=== PATIENT | female | born 1960 | race African-American/Black ===

== ENCOUNTER 2023-07-04 01:38 | Inpatient (IN) | payer MEDICARE, OTHER ==
[2023-07-04 04:29] VITALS: BMI 31.3
[2023-07-04] MEDS ORDERED: Acetaminophen 650 MG Suppository PR PRN (04:48)
[2023-07-04] MEDS: Albumin 25% 25 GM (100 mL) BOT IVPB SCH ×2 (05:26→15:08)
[2023-07-04] MEDS ORDERED: Glucagon 1 MG/ML KIT IM PRN (05:59)
[2023-07-04] MEDS ORDERED: Dextrose 5% in Water 1,000 ML IV PRN (05:59)
[2023-07-04] MEDS ORDERED: Dextrose 50% Abboject 50 ML SYRINGE SLOW IVP PRN (05:59)
[2023-07-04 06:35] LABS: #Basophils 0.1 10x3/uL (0.0-0.2); #Eosinphils 0.2 10x3/uL (0.0-0.5); #Monocytes 0.9 10x3/uL (0.0-1.1); #Neutrophils 4.9 10x3/uL (1.5-8.4); %Basophils 0.6 % (0.0-2.0); %Eosinophils 2.5 % (0.0-6.0); %Lymphocytes 29.7 % (18.0-47.0); %Monocytes 10.2 % (0.0-10.0); %Neutrophils 56.8 % (40.0-75.0); Hematocrit 23.4 % (34.9-44.5); Hemoglobin 7.9 g/dL (12.0-15.5); Mean Corpuscular HGB CONC 33.8 g/dL (32.0-36.0); Platelet Count 73 10x3/uL (150-450); RBC Distribution Width 18.6 % (11.5-14.5); Red Blood Cell (RBC) Count 3.04 10x6/uL (3.90-5.03); White Blood Cell (WBC) Count 8.7 10x3/uL (3.5-10.5)
[2023-07-04 06:50] LABS: Anion Gap 17 mmol/L (10-20); BUN (Urea Nitrogen) 61 mg/dL (9.8-20.1); Calc. Creatinine Clearance 18 mL/min (70-130); Calcium 8.6 mg/dL (7.8-10.44); Carbon Dioxide 16 mmol/L (23-31); Chloride 110 mmol/L (98-107); Estimated GFR 11; Glucose 124 mg/dL (80-115); Magnesium 1.9 mg/dL (1.6-2.6); Potassium 4.8 mmol/L (3.5-5.1); Sodium 138 mmol/L (136-145)
[2023-07-04 07:02] LABS: Crenated RBC SLIGHT = 1-5 cells (100X) (None Seen); Platelet Adequacy Comment Appears Decreased; Schistocytes SLIGHT = 2-5 cells (100X) (0-1/hpf); Target Cells MODERATE= 6-15 cells (100X) (0-1/hpf)
[2023-07-04] MEDS: Pantoprazole 40 MG VIAL IVP SCH (10:14)
[2023-07-04] MEDS: Sodium Bicarbonate Tab 325 MG TAB PO SCH (10:17)
[2023-07-04] MEDS: Rifaximin 550 MG TAB PO SCH (10:18)
[2023-07-04] MEDS: Heparin 5,000 UNITS/ML VIAL SC SCH (10:18)
[2023-07-04] MEDS: Lactulose 20 GM (30 mL) UDCUP PO SCH (10:19)
[2023-07-04] MEDS: HumaLOG 300 UNITS/3 ML VIAL SC PRN (23:31)
[2023-07-05 03:49] LABS: #Basophils 0.1 10x3/uL (0.0-0.2); #Eosinphils 0.2 10x3/uL (0.0-0.5); #Monocytes 0.8 10x3/uL (0.0-1.1); #Neutrophils 3.9 10x3/uL (1.5-8.4); %Basophils 0.7 % (0.0-2.0); %Eosinophils 2.5 % (0.0-6.0); %Lymphocytes 37.4 % (18.0-47.0); %Monocytes 10.5 % (0.0-10.0); %Neutrophils 48.7 % (40.0-75.0); Hematocrit 18.8 % (34.9-44.5); Hemoglobin 6.5 g/dL (12.0-15.5); Mean Corpuscular HGB CONC 34.6 g/dL (32.0-36.0); Mean Corpuscular Hemoglobin 26.5 pg (27.0-33.0); Mean Corpuscular Volume 76.7 fl (81.6-98.3); Platelet Count 70 10x3/uL (150-450); RBC Distribution Width 18.1 % (11.5-14.5); Red Blood Cell (RBC) Count 2.45 10x6/uL (3.90-5.03)
[2023-07-05 03:58] LABS: Anion Gap 17 mmol/L (10-20); BUN (Urea Nitrogen) 57 mg/dL (9.8-20.1); Calc. Creatinine Clearance 20 mL/min (70-130); Calcium 8.8 mg/dL (7.8-10.44); Carbon Dioxide 17 mmol/L (23-31); Chloride 112 mmol/L (98-107); Estimated GFR 13; Glucose 120 mg/dL (80-115); Iron Binding Capacity, Total 98 mcg/dL (265-497); Potassium 4.7 mmol/L (3.5-5.1); Sodium 141 mmol/L (136-145)
[2023-07-05 04:26] LABS: Iron 102 ug/dL (50-170)
[2023-07-05 05:12] LABS: Anisocytosis SLIGHT = 6-15 cells (100X) (0-5/hpf); Elliptocytes SLIGHT = 2-5 cells (100X) (0-1/hpf); Target Cells SLIGHT = 2-5 cells (100X) (0-1/hpf)
[2023-07-05 05:13] LABS: Platelet Adequacy Comment Appears Decreased
[2023-07-05] MEDS: Thiamine 100 MG TAB PO SCH (09:55)
[2023-07-05] MEDS: Lactulose 20 GM (30 mL) UDCUP PO SCH (17:04)
[2023-07-05] MEDS: Albumin 25% 25 GM (100 mL) BOT IVPB SCH (17:04)
[2023-07-05 19:01] LABS: Bilirubin Neg (Negative); Blood, Urine 150 (Negative); Clarity Cloudy (Clear); Glucose, Urine (Dipstick) Normal (Negative); Ketone, Urine 5 mg/dL (Negative); Leukocyte 500 (Negative); Nitrite Positive (Negative); Protein, Urine (Dipstick) 30 mg/dl (Neg-Trace); Urobilinogen Normal mg/dL (Less than 2)
[2023-07-05 19:15] LABS: Bacteria/HPF 4+ HPF (None Seen); Squamous Epithelial 0-3 HPF (0-3); Yeast-Budding 1+ HPF (None Seen)
[2023-07-06 04:20] LABS: #Basophils 0.1 10x3/uL (0.0-0.2); #Eosinphils 0.2 10x3/uL (0.0-0.5); #Monocytes 0.6 10x3/uL (0.0-1.1); #Neutrophils 4.5 10x3/uL (1.5-8.4); %Basophils 0.7 % (0.0-2.0); %Eosinophils 2.6 % (0.0-6.0); %Lymphocytes 30.4 % (18.0-47.0); %Monocytes 8.1 % (0.0-10.0); %Neutrophils 57.9 % (40.0-75.0); Hematocrit 25.3 % (34.9-44.5); Hemoglobin 8.7 g/dL (12.0-15.5); Mean Corpuscular HGB CONC 34.4 g/dL (32.0-36.0); Mean Corpuscular Volume 78.6 fl (81.6-98.3); Platelet Count 61 10x3/uL (150-450); RBC Distribution Width 17.8 % (11.5-14.5); Red Blood Cell (RBC) Count 3.22 10x6/uL (3.90-5.03); White Blood Cell (WBC) Count 7.7 10x3/uL (3.5-10.5)
[2023-07-06 04:44] LABS: ALT (SGPT) 11 U/L (8-55); AST (SGOT) 23 U/L (5-34); Albumin 3.9 g/dL (3.4-4.8); Alkaline Phosphatase 153 U/L (40-110); Bilirubin, Direct 1.7 mg/dL (0.1-0.3); Bilirubin, Total 3.8 mg/dL (0.2-1.2)
[2023-07-06 04:46] LABS: Anion Gap 15 mmol/L (10-20); BUN (Urea Nitrogen) 47 mg/dL (9.8-20.1); Calc. Creatinine Clearance 27 mL/min (70-130); Calcium 9.1 mg/dL (7.8-10.44); Carbon Dioxide 17 mmol/L (23-31); Chloride 111 mmol/L (98-107); Estimated GFR 18; Glucose 269 mg/dL (80-115); Potassium 4.8 mmol/L (3.5-5.1); Sodium 138 mmol/L (136-145)
[2023-07-06] MEDS: HumaLOG 300 UNITS/3 ML VIAL SC PRN (06:32)
[2023-07-06] MEDS ORDERED: Lactated Ringer's 1,000 ML IV SCH (07:15)
[2023-07-06] MEDS: Lantus 1000 UNITS/10 ML VIAL SC SCH (09:16)
[2023-07-06] MEDS: EPOETIN ALFA-EPBX 10,000 UNITS/ML VIAL SC SCH (10:41)
[2023-07-06] MEDS: Albumin 25% 25 GM (100 mL) BOT IVPB SCH (11:10)
[2023-07-06] MEDS: Propranolol 10 MG TAB PO SCH ×2 (12:31→14:17)
[2023-07-06] MEDS: Terbinafine 1% Cream 15 GM Tube TOP SCH (14:15)
[2023-07-07] MEDS: Albuterol 2.5 MG (3 mL) NEB NEB SCH (03:20)
[2023-07-07 05:34] LABS: #Eosinphils 0.1 10x3/uL (0.0-0.5); #Monocytes 1.1 10x3/uL (0.0-1.1); %Basophils 0.3 % (0.0-2.0); %Lymphocytes 21.8 % (18.0-47.0); %Monocytes 9.6 % (0.0-10.0); %Neutrophils 66.8 % (40.0-75.0); Hematocrit 26.1 % (34.9-44.5); Hemoglobin 8.7 g/dL (12.0-15.5); Mean Corpuscular HGB CONC 33.3 g/dL (32.0-36.0); Mean Corpuscular Hemoglobin 26.7 pg (27.0-33.0); Mean Corpuscular Volume 80.1 fl (81.6-98.3); Platelet Count 56 10x3/uL (150-450); Red Blood Cell (RBC) Count 3.26 10x6/uL (3.90-5.03); White Blood Cell (WBC) Count 11.9 10x3/uL (3.5-10.5)
[2023-07-07 05:58] LABS: ALT (SGPT) 11 U/L (8-55); AST (SGOT) 24 U/L (5-34); Albumin 4.9 g/dL (3.4-4.8); Alkaline Phosphatase 126 U/L (40-110); Anion Gap 16 mmol/L (10-20); BUN (Urea Nitrogen) 47 mg/dL (9.8-20.1); Bilirubin, Direct 2.1 mg/dL (0.1-0.3); Bilirubin, Total 6.8 mg/dL (0.2-1.2); Calc. Creatinine Clearance 25 mL/min (70-130); Calcium 10.1 mg/dL (7.8-10.44); Carbon Dioxide 18 mmol/L (23-31); Chloride 108 mmol/L (98-107); Estimated GFR 16; Glucose 259 mg/dL (80-115); Potassium 5.1 mmol/L (3.5-5.1); Protein, Total 8.3 g/dL (5.8-8.1); Sodium 137 mmol/L (136-145)
[2023-07-07] MEDS: Lantus 1000 UNITS/10 ML VIAL SC SCH (08:27)
[2023-07-07] MEDS: Terbinafine 1% Cream 15 GM Tube TOP SCH (08:30)
[2023-07-07] MEDS: Acetaminophen 325 MG TAB PO PRN (08:32)
[2023-07-07] MEDS: Lactulose 20 GM (30 mL) UDCUP PO SCH (11:38)
[2023-07-07] MEDS: Amlodipine 5 MG TAB PO SCH (11:39)
[2023-07-07] MEDS: Ipratropium/Albuterol 3 ML NEB NEB PRN (12:25)
[2023-07-07] MEDS: Diclofenac 1% 100 GM Topical GEL TP SCH (14:56)
[2023-07-07] MEDS: Diclofenac 1% 50 GM TOPICAL GEL TP SCH (17:05)
[2023-07-07] MEDS: Propranolol 10 MG TAB PO SCH (21:07)
[2023-07-08 06:26] LABS: ALT (SGPT) 10 U/L (8-55); AST (SGOT) 18 U/L (5-34); Albumin 4.4 g/dL (3.4-4.8); Alkaline Phosphatase 111 U/L (40-110); Anion Gap 15 mmol/L (10-20); BUN (Urea Nitrogen) 60 mg/dL (9.8-20.1); Bilirubin, Direct 1.8 mg/dL (0.1-0.3); Bilirubin, Total 4.3 mg/dL (0.2-1.2); Calc. Creatinine Clearance 19 mL/min (70-130); Calcium 9.7 mg/dL (7.8-10.44); Carbon Dioxide 17 mmol/L (23-31); Chloride 108 mmol/L (98-107); Estimated GFR 11; Glucose 303 mg/dL (80-115); Potassium 5.1 mmol/L (3.5-5.1); Protein, Total 7.7 g/dL (5.8-8.1); Sodium 135 mmol/L (136-145)
[2023-07-08 06:45] LABS: #Basophils 0.1 10x3/uL (0.0-0.2); #Eosinphils 0.1 10x3/uL (0.0-0.5); #Monocytes 1.5 10x3/uL (0.0-1.1); %Basophils 0.3 % (0.0-2.0); %Eosinophils 0.7 % (0.0-6.0); %Lymphocytes 15.2 % (18.0-47.0); %Neutrophils 74.4 % (40.0-75.0); Hematocrit 25.4 % (34.9-44.5); Hemoglobin 8.5 g/dL (12.0-15.5); Mean Corpuscular HGB CONC 33.5 g/dL (32.0-36.0); Mean Corpuscular Hemoglobin 26.9 pg (27.0-33.0); Mean Corpuscular Volume 80.4 fl (81.6-98.3); Platelet Count 51 10x3/uL (150-450); Red Blood Cell (RBC) Count 3.16 10x6/uL (3.90-5.03); White Blood Cell (WBC) Count 16.1 10x3/uL (3.5-10.5)
[2023-07-08] MEDS: Amlodipine 5 MG TAB PO SCH (09:19)
[2023-07-08] MEDS: Sodium Chloride 0.9% 1,000 ML IV SCH (09:19)
[2023-07-08] MEDS: cefTRIAXone\\ROCEPHIN 1 GM in Sodium Chloride 0.9% 100 ML IVPB SCH (16:22)
[2023-07-09 08:49] LABS: ALT (SGPT) 10 U/L (8-55); AST (SGOT) 16 U/L (5-34); Alkaline Phosphatase 105 U/L (40-110); Anion Gap 15 mmol/L (10-20); BUN (Urea Nitrogen) 69 mg/dL (9.8-20.1); Bilirubin, Direct 1.6 mg/dL (0.1-0.3); Calc. Creatinine Clearance 15 mL/min (70-130); Carbon Dioxide 17 mmol/L (23-31); Chloride 109 mmol/L (98-107); Estimated GFR 9; Glucose 181 mg/dL (80-115); Potassium 5.4 mmol/L (3.5-5.1); Protein, Total 7.3 g/dL (5.8-8.1); Sodium 136 mmol/L (136-145)
[2023-07-09 08:53] LABS: #Eosinphils 0.2 10x3/uL (0.0-0.5); #Monocytes 0.9 10x3/uL (0.0-1.1); %Basophils 0.3 % (0.0-2.0); %Lymphocytes 23.6 % (18.0-47.0); %Monocytes 7.6 % (0.0-10.0); %Neutrophils 66.2 % (40.0-75.0); Hematocrit 24.6 % (34.9-44.5); Hemoglobin 8.1 g/dL (12.0-15.5); Mean Corpuscular HGB CONC 32.9 g/dL (32.0-36.0); Mean Corpuscular Hemoglobin 26.9 pg (27.0-33.0); Mean Corpuscular Volume 81.7 fl (81.6-98.3); Platelet Count 58 10x3/uL (150-450); RBC Distribution Width 18.6 % (11.5-14.5); Red Blood Cell (RBC) Count 3.01 10x6/uL (3.90-5.03)
[2023-07-09] MEDS: Lantus 1000 UNITS/10 ML VIAL SC SCH (10:57)
[2023-07-10 08:47] LABS: #Basophils 0.1 10x3/uL (0.0-0.2); #Eosinphils 0.2 10x3/uL (0.0-0.5); #Monocytes 0.9 10x3/uL (0.0-1.1); #Neutrophils 7.1 10x3/uL (1.5-8.4); %Basophils 0.5 % (0.0-2.0); %Eosinophils 2.3 % (0.0-6.0); %Lymphocytes 20.7 % (18.0-47.0); %Monocytes 8.2 % (0.0-10.0); %Neutrophils 67.7 % (40.0-75.0); Hematocrit 25.2 % (34.9-44.5); Hemoglobin 8.1 g/dL (12.0-15.5); Mean Corpuscular HGB CONC 32.1 g/dL (32.0-36.0); Mean Corpuscular Hemoglobin 26.6 pg (27.0-33.0); Mean Corpuscular Volume 82.9 fl (81.6-98.3); Platelet Count 62 10x3/uL (150-450); RBC Distribution Width 18.6 % (11.5-14.5); Red Blood Cell (RBC) Count 3.04 10x6/uL (3.90-5.03); White Blood Cell (WBC) Count 10.5 10x3/uL (3.5-10.5)
[2023-07-10 08:52] LABS: Anion Gap 15 mmol/L (10-20); BUN (Urea Nitrogen) 72 mg/dL (9.8-20.1); Calc. Creatinine Clearance 14 mL/min (70-130); Calcium 8.5 mg/dL (7.8-10.44); Carbon Dioxide 15 mmol/L (23-31); Chloride 112 mmol/L (98-107); Estimated GFR 8; Glucose 202 mg/dL (80-115); Potassium 5.2 mmol/L (3.5-5.1); Sodium 137 mmol/L (136-145)
[2023-07-10 11:02] LABS: HBSAg Index 0.25 S/CO (0-0.99); Hep B Surf Ag Non-Reactive S/CO (NonReactive)
[2023-07-10 14:51] LABS: Hep C IgG Ab Non-Reactive S/CO (NonReactive); Hep C Index 0.26 S/CO (0-0.79)
[2023-07-10 14:55] LABS: HBSAB Concentration 426.63 mIU/mL; Hep B Surf AB Reactive (NonReactive)
[2023-07-10] MEDS: Tuberculin PPD 0.1 ML VIAL I-DERMAL SCH (15:36)
[2023-07-10 17:41] LABS: Hep B Core Total Index 0.89 S/CO (0-0.79)
[2023-07-11 05:33] LABS: Anion Gap 15 mmol/L (10-20); BUN (Urea Nitrogen) 78 mg/dL (9.8-20.1); Calc. Creatinine Clearance 14 mL/min (70-130); Calcium 8.6 mg/dL (7.8-10.44); Carbon Dioxide 13 mmol/L (23-31); Chloride 113 mmol/L (98-107); Estimated GFR 8; Glucose 129 mg/dL (80-115); Potassium 5.1 mmol/L (3.5-5.1); Sodium 136 mmol/L (136-145)
[2023-07-11 05:42] LABS: #Eosinphils 0.2 10x3/uL (0.0-0.5); #Monocytes 0.7 10x3/uL (0.0-1.1); #Neutrophils 5.4 10x3/uL (1.5-8.4); %Basophils 0.4 % (0.0-2.0); %Eosinophils 2.4 % (0.0-6.0); %Lymphocytes 29.5 % (18.0-47.0); %Neutrophils 59.4 % (40.0-75.0); Hemoglobin 8.1 g/dL (12.0-15.5); Mean Corpuscular HGB CONC 32.4 g/dL (32.0-36.0); Mean Corpuscular Hemoglobin 26.8 pg (27.0-33.0); Mean Corpuscular Volume 82.8 fl (81.6-98.3); Platelet Count 66 10x3/uL (150-450); RBC Distribution Width 19.7 % (11.5-14.5); Red Blood Cell (RBC) Count 3.02 10x6/uL (3.90-5.03); White Blood Cell (WBC) Count 9.1 10x3/uL (3.5-10.5)
[2023-07-11] MEDS ORDERED: Bupivacaine 0.25% HCL 30 ML VIAL ONE (08:39)
[2023-07-11] MEDS ORDERED: PROPOFOL 20 ML ONE (08:58)
[2023-07-11] MEDS ORDERED: CEFAZOLIN 2 GM VIAL ONE (08:59)
[2023-07-11] MEDS ORDERED: fentaNYL 50 mcg/mL 1 mL Vial ONE (08:59)
[2023-07-11] MEDS ORDERED: Lidocaine 1% PF 5 ML VIAL ONE (09:00)
[2023-07-11] MEDS ORDERED: EPINEPHrine 1 MG/ML AMP ONE (09:24)
[2023-07-11] MEDS ORDERED: Ondansetron PF 4 MG/2 ML Vial ONE (09:30)
[2023-07-11] MEDS ORDERED: Dexamethasone 4 mg/ml Vial ONE (09:30)
[2023-07-11] MEDS ORDERED: CEFAZOLIN 2 GM in Sodium Chloride 0.9% 100 ML IVPB SCH (11:00)
[2023-07-11] MEDS ORDERED: Piperacillin/Tazobactam 3.375 GM in Sodium Chloride 0.9% 100 ML IVPB SCH (18:00)
[2023-07-11] MEDS: Piperacillin/Tazobactam 3.375 GM in Sodium Chloride 0.9% 100 ML IVPB SCH ×3 (18:28→21:48)
[2023-07-12] MEDS: Piperacillin/Tazobactam 3.375 GM in Sodium Chloride 0.9% 100 ML IVPB SCH (01:56)
[2023-07-12 06:53] LABS: #Monocytes 0.4 10x3/uL (0.0-1.1); #Neutrophils 8.2 10x3/uL (1.5-8.4); %Basophils 0.1 % (0.0-2.0); %Lymphocytes 12.5 % (18.0-47.0); %Monocytes 4.2 % (0.0-10.0); %Neutrophils 82.5 % (40.0-75.0); Hematocrit 23.7 % (34.9-44.5); Hemoglobin 7.8 g/dL (12.0-15.5); Mean Corpuscular HGB CONC 32.9 g/dL (32.0-36.0); Mean Corpuscular Hemoglobin 27.2 pg (27.0-33.0); Mean Corpuscular Volume 82.6 fl (81.6-98.3); Platelet Count 63 10x3/uL (150-450); RBC Distribution Width 19.8 % (11.5-14.5); Red Blood Cell (RBC) Count 2.87 10x6/uL (3.90-5.03)
[2023-07-12 07:01] LABS: Anion Gap 18 mmol/L (10-20); BUN (Urea Nitrogen) 68 mg/dL (9.8-20.1); Calc. Creatinine Clearance 15 mL/min (70-130); Calcium 8.7 mg/dL (7.8-10.44); Carbon Dioxide 15 mmol/L (23-31); Chloride 108 mmol/L (98-107); Estimated GFR 9; Glucose 241 mg/dL (80-115); Potassium 5.4 mmol/L (3.5-5.1); Sodium 136 mmol/L (136-145)
[2023-07-13 05:10] LABS: Anion Gap 18 mmol/L (10-20); BUN (Urea Nitrogen) 47 mg/dL (9.8-20.1); Calc. Creatinine Clearance 20 mL/min (70-130); Calcium 8.6 mg/dL (7.8-10.44); Carbon Dioxide 18 mmol/L (23-31); Chloride 106 mmol/L (98-107); Estimated GFR 12; Glucose 198 mg/dL (80-115); Potassium 4.3 mmol/L (3.5-5.1); Sodium 138 mmol/L (136-145)
[2023-07-13 05:15] LABS: #Eosinphils 0.1 10x3/uL (0.0-0.5); #Neutrophils 8.1 10x3/uL (1.5-8.4); %Basophils 0.3 % (0.0-2.0); %Eosinophils 0.4 % (0.0-6.0); %Lymphocytes 19.6 % (18.0-47.0); %Monocytes 8.6 % (0.0-10.0); %Neutrophils 70.4 % (40.0-75.0); Hematocrit 24.3 % (34.9-44.5); Mean Corpuscular HGB CONC 32.9 g/dL (32.0-36.0); Mean Corpuscular Hemoglobin 26.8 pg (27.0-33.0); Mean Corpuscular Volume 81.5 fl (81.6-98.3); Platelet Count 71 10x3/uL (150-450); RBC Distribution Width 19.8 % (11.5-14.5); Red Blood Cell (RBC) Count 2.98 10x6/uL (3.90-5.03); White Blood Cell (WBC) Count 11.5 10x3/uL (3.5-10.5)
[2023-07-13 05:51] LABS: Microcytosis SLIGHT = 6-15 cells (100X) (0-5/hpf); Platelet Adequacy Comment Appears Decreased
[2023-07-13] MEDS: READ PPD TEST SITE PO SCH (09:55)
[2023-07-14 04:38] LABS: #Eosinphils 0.1 10x3/uL (0.0-0.5); #Monocytes 1.1 10x3/uL (0.0-1.1); #Neutrophils 5.8 10x3/uL (1.5-8.4); %Basophils 0.3 % (0.0-2.0); %Eosinophils 1.1 % (0.0-6.0); %Lymphocytes 24.2 % (18.0-47.0); %Neutrophils 61.9 % (40.0-75.0); Hematocrit 24.5 % (34.9-44.5); Hemoglobin 7.9 g/dL (12.0-15.5); Mean Corpuscular HGB CONC 32.2 g/dL (32.0-36.0); Mean Corpuscular Hemoglobin 26.9 pg (27.0-33.0); Mean Corpuscular Volume 83.3 fl (81.6-98.3); Platelet Count 66 10x3/uL (150-450); RBC Distribution Width 19.9 % (11.5-14.5); Red Blood Cell (RBC) Count 2.94 10x6/uL (3.90-5.03); White Blood Cell (WBC) Count 9.4 10x3/uL (3.5-10.5)
[2023-07-14 04:40] LABS: Anion Gap 13 mmol/L (10-20); BUN (Urea Nitrogen) 27 mg/dL (9.8-20.1); Calc. Creatinine Clearance 26 mL/min (70-130); Calcium 8.2 mg/dL (7.8-10.44); Carbon Dioxide 23 mmol/L (23-31); Chloride 108 mmol/L (98-107); Estimated GFR 17; Glucose 262 mg/dL (80-115); Potassium 3.8 mmol/L (3.5-5.1); Sodium 140 mmol/L (136-145)
[2023-07-14 04:57] LABS: Platelet Adequacy Comment Appears Decreased
[2023-07-14 04:58] LABS: Microcytosis SLIGHT = 6-15 cells (100X) (0-5/hpf)
[2023-07-14] MEDS: Doxycycline 100 MG CAP PO SCH (22:32)
[2023-07-15 05:43] LABS: #Eosinphils 0.2 10x3/uL (0.0-0.5); #Monocytes 1.1 10x3/uL (0.0-1.1); #Neutrophils 5.6 10x3/uL (1.5-8.4); %Basophils 0.4 % (0.0-2.0); %Eosinophils 2.6 % (0.0-6.0); %Lymphocytes 25.3 % (18.0-47.0); %Monocytes 11.2 % (0.0-10.0); %Neutrophils 59.9 % (40.0-75.0); Hematocrit 27.2 % (34.9-44.5); Hemoglobin 8.5 g/dL (12.0-15.5); Mean Corpuscular HGB CONC 31.3 g/dL (32.0-36.0); Mean Corpuscular Hemoglobin 26.7 pg (27.0-33.0); Mean Corpuscular Volume 85.5 fl (81.6-98.3); Platelet Count 63 10x3/uL (150-450); RBC Distribution Width 20.7 % (11.5-14.5); Red Blood Cell (RBC) Count 3.18 10x6/uL (3.90-5.03); White Blood Cell (WBC) Count 9.4 10x3/uL (3.5-10.5)
[2023-07-15 05:46] LABS: Anion Gap 9 mmol/L (10-20); BUN (Urea Nitrogen) 16 mg/dL (9.8-20.1); Calc. Creatinine Clearance 35 mL/min (70-130); Calcium 8.5 mg/dL (7.8-10.44); Carbon Dioxide 29 mmol/L (23-31); Chloride 108 mmol/L (98-107); Estimated GFR 24; Glucose 165 mg/dL (80-115); Potassium 4.1 mmol/L (3.5-5.1); Sodium 142 mmol/L (136-145)
[2023-07-15 06:01] LABS: Microcytosis SLIGHT = 6-15 cells (100X) (0-5/hpf); Platelet Adequacy Comment Appears Decreased
[2023-07-15] MEDS: Amlodipine 5 MG TAB PO SCH (17:40)
[2023-07-16 05:46] LABS: #Basophils 0.1 10x3/uL (0.0-0.2); #Eosinphils 0.3 10x3/uL (0.0-0.5); #Neutrophils 6.7 10x3/uL (1.5-8.4); %Basophils 0.5 % (0.0-2.0); %Eosinophils 2.7 % (0.0-6.0); %Lymphocytes 26.6 % (18.0-47.0); %Neutrophils 60.5 % (40.0-75.0); Hematocrit 29.9 % (34.9-44.5); Hemoglobin 9.5 g/dL (12.0-15.5); Mean Corpuscular HGB CONC 31.8 g/dL (32.0-36.0); Mean Corpuscular Hemoglobin 27.1 pg (27.0-33.0); Mean Corpuscular Volume 85.4 fl (81.6-98.3); Platelet Count 71 10x3/uL (150-450); RBC Distribution Width 21.3 % (11.5-14.5); White Blood Cell (WBC) Count 11.1 10x3/uL (3.5-10.5)
[2023-07-16 06:01] LABS: Anion Gap 12 mmol/L (10-20); BUN (Urea Nitrogen) 23 mg/dL (9.8-20.1); Calc. Creatinine Clearance 28 mL/min (70-130); Calcium 8.9 mg/dL (7.8-10.44); Carbon Dioxide 25 mmol/L (23-31); Chloride 106 mmol/L (98-107); Estimated GFR 19; Glucose 165 mg/dL (80-115); Potassium 3.9 mmol/L (3.5-5.1); Sodium 139 mmol/L (136-145)
[2023-07-16 06:06] LABS: Microcytosis SLIGHT = 6-15 cells (100X) (0-5/hpf); Platelet Adequacy Comment Appears Decreased
[2023-07-16] MEDS: Amlodipine 10 MG TAB PO SCH (15:35)
[2023-07-17 07:37] LABS: #Basophils 0.1 10x3/uL (0.0-0.2); #Eosinphils 0.4 10x3/uL (0.0-0.5); #Monocytes 0.9 10x3/uL (0.0-1.1); #Neutrophils 7.3 10x3/uL (1.5-8.4); %Basophils 0.4 % (0.0-2.0); %Eosinophils 3.1 % (0.0-6.0); %Lymphocytes 25.6 % (18.0-47.0); %Monocytes 7.8 % (0.0-10.0); %Neutrophils 62.7 % (40.0-75.0); Mean Corpuscular HGB CONC 32.3 g/dL (32.0-36.0); Mean Corpuscular Hemoglobin 27.3 pg (27.0-33.0); Mean Corpuscular Volume 84.7 fl (81.6-98.3); Platelet Count 75 10x3/uL (150-450); RBC Distribution Width 21.2 % (11.5-14.5); Red Blood Cell (RBC) Count 3.66 10x6/uL (3.90-5.03); White Blood Cell (WBC) Count 11.6 10x3/uL (3.5-10.5)
[2023-07-17 07:39] LABS: Anion Gap 14 mmol/L (10-20); BUN (Urea Nitrogen) 17 mg/dL (9.8-20.1); Calc. Creatinine Clearance 33 mL/min (70-130); Carbon Dioxide 26 mmol/L (23-31); Chloride 101 mmol/L (98-107); Estimated GFR 23; Glucose 131 mg/dL (80-115); Potassium 3.2 mmol/L (3.5-5.1); Sodium 138 mmol/L (136-145)
[2023-07-17] MEDS: Potassium Chloride 20 MEQ TAB PO SCH (11:18)
[2023-07-17 11:55] VITALS: BP 142/64; TEMP 98.5
[2023-07-17 12:13] LABS: QuantiFERON-TB Gold Plus Negative (Negative)
== END 2023-07-17 14:50 | DRG 441 ==
LOC: CSHTELE 03:56
PROVIDERS: ADMIT Student in an Organized Health Care Education/Training Program; ATTEND Hospitalist
PROC: 30233J1 Transfusion of Nonautologous Serum Albumin into Peripheral Vein, Percutaneous Approach (ICD-10-PCS; 2023-07-05)
PROC: 0JH63XZ Insertion of Tunneled Vascular Access Device into Chest Subcutaneous Tissue and Fascia, Percutaneous Approach (ICD-10-PCS; principal; 2023-07-11)
PROC: 02HV33Z Insertion of Infusion Device into Superior Vena Cava, Percutaneous Approach (ICD-10-PCS; 2023-07-11)
PROC: 3E033XZ Introduction of Vasopressor into Peripheral Vein, Percutaneous Approach (ICD-10-PCS; 2023-07-11)
PROC: 5A1D70Z Performance of Urinary Filtration, Intermittent, Less than 6 Hours Per Day (ICD-10-PCS; 2023-07-11)
PROC: 5A1D70Z Performance of Urinary Filtration, Intermittent, Less than 6 Hours Per Day (ICD-10-PCS; 2023-07-12)
PROC: 5A1D70Z Performance of Urinary Filtration, Intermittent, Less than 6 Hours Per Day (ICD-10-PCS; 2023-07-13)
PROC: 5A1D70Z Performance of Urinary Filtration, Intermittent, Less than 6 Hours Per Day (ICD-10-PCS; 2023-07-14)
PROC: 5A1D70Z Performance of Urinary Filtration, Intermittent, Less than 6 Hours Per Day (ICD-10-PCS; 2023-07-16)
DX: K76.82 Hepatic encephalopathy (principal); G93.41 Metabolic encephalopathy; I50.33 Acute on chronic diastolic (congestive) heart failure; N18.6 End stage renal disease; E87.20 Acidosis, unspecified; N17.9 Acute kidney failure, unspecified; I50.32 Chronic diastolic (congestive) heart failure; I13.2 Hypertensive heart and chronic kidney disease with heart failure and with stage 5 chronic kidney disease, or end stage renal disease; N39.0 Urinary tract infection, site not specified; K70.30 Alcoholic cirrhosis of liver without ascites; D63.1 Anemia in chronic kidney disease; Z66 Do not resuscitate; K21.9 Gastro-esophageal reflux disease without esophagitis; N18.9 Chronic kidney disease, unspecified; D69.6 Thrombocytopenia, unspecified; E80.6 Other disorders of bilirubin metabolism; D63.8 Anemia in other chronic diseases classified elsewhere; E11.22 Type 2 diabetes mellitus with diabetic chronic kidney disease; Z91.040 Latex allergy status; Z79.899 Other long term (current) drug therapy; Z79.84 Long term (current) use of oral hypoglycemic drugs; Z79.4 Long term (current) use of insulin; Z87.891 Personal history of nicotine dependence
CPT/HCPCS: 36415; 36416; 36430; 71045; 71250; 80048; 80076; 81001; 82140; 82728; 83540; 83550; 83735; 85025; 86480; 86704; 86850; 86900; 86901; 87040; 87077; 87086; 87186; 90935; 93306; 94640; C1752; C9113; G0257; J0171; J0665; J0696; J1100; J1642; J1644; J1815; J2405; J2543; J2704; J3010; J3490; J7050; J7611; J7620; P9016; P9047; Q5106